=== PATIENT | female | born 1940 | race Caucasian/White ===

== ENCOUNTER → 2017-11-28 | Outpatient (CLI) | payer MEDICARE, OTHER ==
--- NOTE | 2017-11-28 10:45 | US ---
EXAMINATION TYPE: US abdomen complete DATE OF EXAM: 11/28/2017 COMPARISON: NONE CLINICAL HISTORY: R10.9 Abd pain. Intermittent epigastric pain for 2 months EXAM MEASUREMENTS: Liver Length: 14.2 cm Gallbladder Wall: 0.3 cm CBD: 0.4 cm Spleen: 11.2 cm Right Kidney: 10.2 x 4.2 x 4.5 cm Left Kidney: 10.4 x 4.9 x 3.9 cm Pancreas: Tail obscured by overlying bowel gas Liver: slightly heterogeneous Gallbladder: no evidence of stones Evidence for sonographic Batista's sign: no CBD: wnl Spleen: granulomas Right Kidney: no evidence of hydronephrosis Left Kidney: no evidence of hydronephrosis Upper IVC: wnl Abd Aorta: portions obscured by overlying bowel content The intrahepatic portion of the IVC and proximal abdominal aorta are within normal limits. There is no evidence of cholelithiasis. Common bile duct is unremarkable. The visualized portions of the pa ncreas are homogenous. The spleen is unremarkable. Kidneys are symmetric and free of hydronephrosis . No renal lesions are seen. IMPRESSION: 1. Borderline fatty hepatic infiltration.
== END ==
LOC: RADUSWWP 09:56
PROVIDERS: ATTEND Family Medicine
DX: K76.0 Fatty (change of) liver, not elsewhere classified (principal)
CPT/HCPCS: 76700

== ENCOUNTER 2017-12-29 08:21 | Day surgery (SDC) | payer MEDICARE, OTHER ==
[2017-12-24 11:54] VITALS: BMI 30.9
--- NOTE | 2017-12-28 18:12 | HP ---
HISTORY AND PHYSICAL DATE OF ADMISSION: 12/29/2017 CHIEF COMPLAINT: Fluid in the right ear. HISTORY OF PRESENT ILLNESS: This patient is a 77-year-old female who was recently seen in my office complaining of a plugged sensation in her right ear. It is to be noted that the patient had Davis type T tubes placed in both ears approximately 2 years ago and has done well. At the time that she was seen in my office, clinical examination of the right ear revealed that the Davis type T-tube had extruded from the tympanic membrane. Testing with the tuning fork revealed a conductive hearing loss and there was evidence of fluid in the right middle ear space. Examination of the left ear revealed that the Davis type T tube was intact and patent. It was recommended that the patient undergo a right myringotomy with insertion of a Davis type T-tube under IV sedation with MAC. PAST MEDICAL HISTORY: Past medical history reveals that she has: ALLERGIES: TO NEOSPORIN. MEDICATIONS: Current medications include: Ezetimibe, metoprolol, losartan, VESIcare, Famotidine. REVIEW OF SYSTEMS: Review of systems revealed that the cardiovascular system is positive for hypertension. The remainder of the review of systems is essentially unremarkable. PHYSICAL EXAMINATION: This patient is a very pleasant 77-year-old female who is alert and cooperative. HEENT examination: Patient is normocephalic. Examination of left ear reveals that the left tympanic membrane has a Davis T-type T tube is present and the tube is patent and the left middle ear space is free of any fluid or infection. Examination of the right ear reveals that the right tube has extruded and the right tympanic membrane is dull with fluid in the right middle ear space. Pupils equal, round, react to light and accommodation. Extraocular movements within normal limits. Full intranasal examination reveals moderate to severe septal deviation with compensatory hypertrophy of the inferior turbinates and a moderate amount of mucus on the mucous membranes and draining down the posterior pharyngeal wall. Examination of oropharynx, cranial nerves 2 through 12 and remainder of the head and neck exam are within normal limits. Chest/cardiovascular: Both lung cardenas are clear to percussion and auscultation. The patient is in regular sinus rhythm S1, S2 are present without evidence of any murmurs S3s or S4s. Peripheral pulses are bilaterally symmetrical. ABDOMEN: There is no evidence of any masses, megaly, or tenderness. ABDOMEN: Soft. Skin is unremarkable. Musculoskeletal and neurological is within normal limits. Pelvic and rectal examination exam is deferred at this time because the patient has this done on a regular basis at the family physician's office. The remainder of the past medical history reveals that the patient's previous surgeries include a bilateral myringotomy with insertion of Davis type T tubes, right myringotomy with insertion of ventilation tube, several benign breast biopsies, tubal ligation, and carpal tunnel surgery. She is 3, para 3, 0 miscarriage. IMPRESSION: Chronic right serous otitis media. PLAN: The patient is scheduled undergo a insertion of a Davis T-type T-tube and a myringotomy of the right tympanic membrane under IV sedation with MAC, depending upon the anesthesia department's preference. Attention RNs in the pre-surgical area: I have not ordered any pre-surgical medications or pre-surgical prophylactic antibiotics for this patient. If the pharmacy department sends any pre-surgical prophylactic antibiotics to the pre-surgical area for this patient, that order should be cancelled and the medication returned to the pharmacy department. Please make sure that the patient's account is credited appropriately. I have discussed the risks, benefits and alternative therapies for the above-mentioned procedure and for both sedation/analgesia as well as necessary blood product administration, if indicated, as they pertain to this patient. The patient has indicated his or her understanding and acceptance of the risks and procedures discussed. MMKAREENL / DANICAN: [id number] /
[~2017-12-29 08:21] MED LIST: DEXAMETHASONE SOD PHOSPHATE 10 MG/ML 1 ML VIAL IV ONE; LACTATED RINGERS 1,000 ML IV SCH; LIDOCAINE 1% 20 ML VIAL (10MG/ML) FOR IV START INTRADERMA PRN; MIDAZOLAM 2 MG/2 ML VIAL IV PRN; ONDANSETRON 4 MG/2 ML VIAL IVP ONE; fentaNYL (PF) 50 MCG/ML 2 ML AMP IV PRN
[2017-12-29 09:44] VITALS: TEMP 98.2
[2017-12-29] MEDS ORDERED: MIDAZOLAM 2 MG/2 ML VIAL ONE (10:15)
[2017-12-29] MEDS ORDERED: fentaNYL (PF) 50 MCG/ML 2 ML AMP ONE (10:15)
[2017-12-29] MEDS ORDERED: PROPOFOL 10 MG/ML 20 ML VIAL IV ONE (10:15)
[2017-12-29] MEDS ORDERED: OFLOXACIN 0.3% OPHTH DROPS 5 ML BOTTLE RIGHT EAR ONE (10:32)
[2017-12-29 11:20] VITALS: BP 128/58; PULSE 63; RESP 16
--- NOTE | 2017-12-29 22:31 | OP ---
OPERATIVE REPORT DATE OF SURGERY: 12/29/2017. PREOPERATIVE: Chronic right serous otitis media. POSTOPERATIVE DIAGNOSIS: Chronic right serous otitis media. ANESTHESIA: IV sedation with MAC. OPERATIVE PROCEDURE: Right myringotomy with insertion of a Davis type T-tube. SURGEON: Dr. Madsen. COMPLICATIONS: None. OPERATIVE PROCEDURE: The patient is placed on operating table in supine position. After uneventful induction and IV sedation, satisfactory sedation was obtained. Next, using the Zeiss operating microscope and a #3 aural speculum, the right external auditory canal was cleansed of all wax and debris. Initial inspection of the external auditory canal revealed a very small hematoma on the inferior wall and it was also noted that the central portion of the right tympanic membrane had apparently been thinned out most likely from the recurrent infections. There was noted to be fluid in the right middle ear space. Therefore, using the myringotomy knife, an incision was made in the anterior inferior quadrant of the right tympanic membrane. Clear serous, fluid was suctioned free from the right middle ear space. Next, a Davis T-type T-tube was inserted through the previously made myringotomy incision without difficulty. Inspection revealed that the was well seated. At this point, the procedure was terminated. There were no intraoperative complications. The patient tolerated procedure well and was returned to recovery room in satisfactory condition. MMODL / IJN: [id number] /
== END 2017-12-29 11:35 | disposition home or self-care (01) ==
LOC: OR 08:21
PROVIDERS: ATTEND Otolaryngology
DX: H65.21 Chronic serous otitis media, right ear (principal); I10 Essential (primary) hypertension; J45.909 Unspecified asthma, uncomplicated; K21.9 Gastro-esophageal reflux disease without esophagitis; Z79.899 Other long term (current) drug therapy; Z88.8 Allergy status to other drugs, medicaments and biological substances
CPT/HCPCS: 69436; J2250; J1100; J2405; J3010; J2704

== ENCOUNTER → 2018-06-30 | Day surgery (SDC) | payer MEDICARE, OTHER ==
[2018-06-25 09:37] VITALS: BMI 31.4
[~2018-06-30] MED LIST changes: +BUPIVACAINE (PF) 0.5% 30 ML VIAL SQ ONE; -DEXAMETHASONE SOD PHOSPHATE 10 MG/ML 1 ML VIAL IV ONE; +HYDROmorphone 0.5 MG/0.5 ML SYRINGE IVP PRN; +LIDOCAINE 1% 20 ML VIAL (10MG/ML) FOR IV START INTRADERMA ONE; -LIDOCAINE 1% 20 ML VIAL (10MG/ML) FOR IV START INTRADERMA PRN; +LIDOCAINE 2% INJ 20 MG/ML SQ ONE; +MIDAZOLAM (PF) 2 MG/2 ML VIAL IV PRN; -MIDAZOLAM 2 MG/2 ML VIAL IV PRN; +MIDAZOLAM 2 MG/2 ML VIAL ONE; +PROPOFOL 10 MG/ML 20 ML VIAL IV ONE; +Pre Op ABX Message 1 EACH MISC MISCELLANE ONE; -fentaNYL (PF) 50 MCG/ML 2 ML AMP IV PRN
[2018-06-30 07:25] VITALS: TEMP 97.7
[2018-06-30 08:44] VITALS: RESP 16
[2018-06-30 09:05] VITALS: BP 125/79; PULSE 69
--- NOTE | 2018-06-30 13:06 | OP ---
OPERATIVE REPORT SURGERY DATE: 06/30/2018. SURGEON: Vasiliy Church DO PREOPERATIVE DIAGNOSIS: Left carpal tunnel syndrome. POSTOPERATIVE DIAGNOSIS: Left carpal tunnel syndrome. PROCEDURE: Left carpal tunnel release. DESCRIPTION OF PROCEDURE: The patient was taken to the operative suite where a sedation was administered by the Department of Anesthesia. I then performed a local injection along the line of the incision with a combination of Marcaine and Xylocaine both without epinephrine. The hand was then prepped and draped in the usual manner. The arm was elevated, exsanguinated and the cuff was inflated to 250 mm of mercury. A longitudinal incision was made along the ring finger ray distal to the wrist crease. Dissection was taken through the skin and subcutaneous tissue, initially sharp through the skin and then blunt through the subcutaneous tissue to ensure protection of any potential terminal transverse branches of the palmar cutaneous nerve. The palmar fascia was then incised under direct vision longitudinally exposing the transverse carpal ligament. The transverse carpal ligament also was incised under direct vision. The dissection was then continued proximally beneath the skin under direct vision to release the distal forearm fascia. The median nerve was then reflected free of tenosynovium to ensure no adhesions. The tourniquet was then released. The wound was then irrigated and the skin was closed with a running 5-0 nylon suture. A soft bulky dressing was applied including a volar plaster splint holding the wrist in a neutral slightly extended position. The patient was then taken to the recovery room in satisfactory condition. MMODTerrell / IJN: [id number] /
== END ==
LOC: OR 06:52
PROVIDERS: ATTEND Orthopaedic Surgery Hand Surgery
DX: G56.02 Carpal tunnel syndrome, left upper limb (principal); I49.9 Cardiac arrhythmia, unspecified; I10 Essential (primary) hypertension; J45.909 Unspecified asthma, uncomplicated; Z97.3 Presence of spectacles and contact lenses; Z87.891 Personal history of nicotine dependence; Z79.51 Long term (current) use of inhaled steroids; Z79.1 Long term (current) use of non-steroidal anti-inflammatories (NSAID); Z79.899 Other long term (current) drug therapy; Z88.8 Allergy status to other drugs, medicaments and biological substances; Z83.3 Family history of diabetes mellitus; Z82.49 Family history of ischemic heart disease and other diseases of the circulatory system
CPT/HCPCS: 64721; J2001; J2250; J2405; J2704

== ENCOUNTER 2019-12-31 08:30 | Day surgery (SDC) | payer MEDICARE ==
[2019-12-29 13:42] VITALS: BMI 31.8
--- NOTE | 2019-12-31 00:18 | HP ---
HISTORY AND PHYSICAL CHIEF COMPLAINT: Fluid in the right ear. HISTORY OF PRESENT ILLNESS: The patient is a 79-year-old female who was recently seen in my office complaining of having a plugged sensation in right ear. Approximately 2-1/2 years ago, we placed a tube in the right ear because of fluid and patient feels that the tube may have come out of her ear. At the time that she was seen in my office, clinical examination of the ear revealed that the ventilation tube had in fact extruded and there was fluid in the right middle ear space, that is to say she had chronic right serous otitis media so- called glue ear. It was recommended that she undergo a right myringotomy with insertion of a Davis ventilation tube under IV sedation with MAC. PAST MEDICAL HISTORY: Past medical history reveals she has an allergy to NEOSPORIN. CURRENT MEDICATIONS: Current medications include metoprolol, losartan, ezetimibe, Aller-[place], Tylenol and testosterone shots biweekly. REVIEW OF SYSTEMS: Cardiovascular is positive for hypertension. Respiratory is negative. Gastrointestinal is negative. Metabolic endocrine is negative. The remainder of the review of systems is unremarkable. PREVIOUS SURGERIES: Previous surgeries include a right myringotomy with insertion of a ventilation tube x3, several benign breast biopsies, tubal ligation, carpal tunnel surgery. She is 3 para, 3 , 0 miscarriage. PHYSICAL EXAMINATION: The patient is a 79-year-old female who is alert and cooperative. HEENT EXAMINATION: Patient is normocephalic. Left tympanic membrane is unremarkable. Right tympanic membrane is dull with fluid in the right middle ear space. Pupils are equal, round, react to light and accommodation. Extraocular movements are within normal limits. Intranasal examination reveals moderate septal deviation with compensatory hypertrophy of the inferior turbinates and a moderate amount of mucus on the mucous membranes and draining down the posterior pharynx. Examination of the oropharynx, cranial nerves 2 through 12 and remainder of the head and neck exam, all within normal limits. CHEST/CARDIOVASCULAR: Both lung cardenas are clear to percussion and auscultation. Patient is in regular sinus rhythm. S1, S2 are present without any murmurs, S3s or S4s. Peripheral pulses are bilaterally symmetrical. ABDOMEN: There is no evidence any masses, megaly or tenderness. Abdomen is soft. Skin is unremarkable. Musculoskeletal and neurological are within normal limits. PELVIC RECTAL EXAM: The pelvic rectal exam is deferred at this time because the patient has this done on a regular basis at her family physician's office. The remainder of physical exam is unremarkable. IMPRESSION: Chronic right serous otitis media. PLAN: The patient is scheduled undergo a right myringotomy, with insertion of a Davis T-type ventilation tube under IV sedation with MAC in the a.m. ATTENTION RNS IN THE PRE-SURGICAL AREA: I have not ordered any pre-surgical prophylactic antibiotics for this patient. If the pharmacy department sends any pre- surgical prophylactic antibiotics to the pre-surgical area for this patient, that order should be cancelled and the medication should be returned to the pharmacy department. Please make sure that the patient's account is credited appropriately. I have discussed the risks, benefits and alternative therapies for the above-mentioned procedure and for both sedation/analgesia as well as necessary blood product administration, if indicated, as they pertain to this patient. The patient has indicated his or her understanding and acceptance of the risks and procedures discussed. MMKAREENL / IJN: [id number] /
[~2019-12-31 08:30] MED LIST changes: -BUPIVACAINE (PF) 0.5% 30 ML VIAL SQ ONE; +DEXAMETHASONE SOD PHOSPHATE 10 MG/ML 1 ML VIAL IV ONE; -HYDROmorphone 0.5 MG/0.5 ML SYRINGE IVP PRN; +LIDOCAINE 1% (10MG/ML) FOR IV START INTRADERMA PRN; -LIDOCAINE 1% 20 ML VIAL (10MG/ML) FOR IV START INTRADERMA ONE; -LIDOCAINE 2% INJ 20 MG/ML SQ ONE; -MIDAZOLAM (PF) 2 MG/2 ML VIAL IV PRN; -MIDAZOLAM 2 MG/2 ML VIAL ONE; -ONDANSETRON 4 MG/2 ML VIAL IVP ONE; -PROPOFOL 10 MG/ML 20 ML VIAL IV ONE
[2019-12-31] MEDS ORDERED: LACTATED RINGERS 1,000 ML IV ONE (09:15)
[2019-12-31] MEDS ORDERED: ONDANSETRON 4 MG/2 ML VIAL ONE (09:20)
[2019-12-31 09:26] VITALS: RESP 16; TEMP 98.3
[2019-12-31] MEDS ORDERED: PROPOFOL 10 MG/ML 20 ML VIAL IV ONE (10:10)
[2019-12-31] MEDS ORDERED: LIDOCAINE 1% INJ 10MG/ML (20 ML MDV) ONE (10:10)
[2019-12-31] MEDS ORDERED: MIDAZOLAM 2 MG/2 ML VIAL ONE (10:10)
[2019-12-31] MEDS ORDERED: fentaNYL (PF) 50 MCG/ML 2 ML AMP ONE (10:10)
[2019-12-31] MEDS ORDERED: OFLOXACIN 0.3% OTIC DROPS 5 ML BTL RIGHT EAR ONE (10:11)
[2019-12-31] MEDS ORDERED: OFLOXACIN 0.3% OPHTH DROPS 5 ML BOTTLE RIGHT EAR ONE (10:37)
[2019-12-31 11:14] VITALS: BP 106/66; PULSE 82
--- NOTE | 2019-12-31 19:39 | OP ---
OPERATIVE REPORT DATE OF SURGERY: 12/31/2019 PREOPERATIVE DIAGNOSIS: Chronic right serous otitis media. POSTOPERATIVE DIAGNOSIS: Chronic right serous otitis media. ANESTHESIA: IV sedation with M.A.C. OPERATIVE PROCEDURE: Right myringotomy with insertion of a Davis T-type ventilation tube. OPERATING SURGEON: Dr. Madsne. COMPLICATIONS: None. OPERATIVE PROCEDURE DESCRIPTION: The patient was placed on the operating table in supine position and after uneventful IV sedation, satisfactory sedation was obtained. Next the patient's right ear was prepped and draped in the usual and customary fashion. Following this, using the Zeiss operating microscope and a #3 aural speculum, the right external auditory canal was cleansed of all wax and debris. Next, a previously extruded ventilation tube, which was located in the external auditory canal, was removed using a pair of alligator forceps. Following this, the myringotomy knife was used to make an incision in the anterior inferior quadrant of the right tympanic membrane. The right middle ear space was suctioned free of all fluid. A Davis T-type ventilation tube was inserted through previous myringotomy incision without difficulty. At this point the procedure was terminated. There were no intraoperative complications. The patient tolerated the procedure well and was returned to the recovery room in satisfactory condition. MMODL / IJN: [id number] /
== END 2019-12-31 11:42 | disposition home or self-care (01) ==
LOC: OR 08:30
PROVIDERS: ATTEND Otolaryngology
DX: H65.21 Chronic serous otitis media, right ear (principal); I10 Essential (primary) hypertension; J45.909 Unspecified asthma, uncomplicated; Z98.890 Other specified postprocedural states; Z88.0 Allergy status to penicillin; Z79.899 Other long term (current) drug therapy; Z79.890 Hormone replacement therapy; Z98.51 Tubal ligation status; Z86.69 Personal history of other diseases of the nervous system and sense organs
CPT/HCPCS: 69436; J2250; J1100; J2405; J2001; J3010; J2704

== ENCOUNTER 2020-01-03 03:03 | Emergency (ER) | payer MEDICARE ==
[2020-01-03] MEDS ORDERED: ACETAMINOPHEN TAB 325 MG TAB PO STA (03:14)
[2020-01-03] MEDS ORDERED: SODIUM CHLORIDE 0.9% 500 ML 500 ML IV ONE (03:14)
[2020-01-03] MEDS ORDERED: SODIUM CHLORIDE 0.9% 1,000 ML IV SCH (03:15)
--- NOTE | 2020-01-03 03:15 | ED ---
General Adult HPI - General Chief complaint: Nausea/Vomiting/Diarrhea Stated complaint: body aches Time Seen by Provider: 01/03/20 03:12 Source: patient Mode of arrival: ambulatory Limitations: no limitations - History of Present Illness Initial comments: Nedra is a very pleasant 79-year-old female who presents the ER today for evaluation of persistent nausea, body aches, alteration in sense of taste and generalized malaise. Patient reports that on Friday she had tympanostomy tube placed. She felt well in the immediate postoperative period however later that night she developed a change in her sense of taste, feels like things don't taste right. She's completely lost her appetite. She reports persistent nausea since Friday night. No vomiting. She did have an episode of diarrhea Friday morning. Patient reports that she's had body aches throughout the weekend. The symptoms didn't seem to be getting any better was concerned she may be becoming dehydrated and decided to bring her to the hospital for further evaluation. Patient denies any chest pain palpitations shortness of breath. She's had subjective fevers but has not been checking her temperature at home. - Related Data Home Medications Medication Instructions Recorded Confirmed Ezetimibe [Zetia] 10 mg PO DAILY 07/12/15 12/31/19 Multivitamins, Thera [Multivitamin] 1 tab PO DAILY 07/12/15 12/31/19 Calcium Carbonate [Calcium] 600 mg PO DAILY 12/24/17 12/31/19 Cetirizine HCl [Zyrtec] 10 mg PO DAILY 12/24/17 12/31/19 Cholecalciferol (Vitamin D3) 2,000 unit PO DAILY 12/24/17 12/31/19 [Vitamin D3] Losartan [Cozaar] 50 mg PO DAILY 12/24/17 12/31/19 Metoprolol Tartrate [Lopressor] 25 mg PO DAILY 12/24/17 12/31/19 Solifenacin Succinate [Vesicare] 5 mg PO DAILY 12/24/17 12/31/19 Acetaminophen [Tylenol Arthritis] 650 mg PO BID 12/29/19 12/31/19 Cannabidiol (Cbd) [Epidiolex] 1 dose TOPICAL DAILY 12/29/19 12/31/19 Flaxseed Oil 1,400 mg PO DAILY 12/29/19 12/31/19 Testosterone Cypionate 1 dose IM Q14D 12/29/19 12/31/19 [Depo-Testosterone] Vitamin C/Biotin [Hair, Skin and 1 tab PO DAILY 12/29/19 12/31/19 Nails] Previous Rx's Medication Instructions Recorded Ondansetron [Zofran ODT] 4 mg PO Q8HR #12 tab 01/03/20 Allergies Allergy/AdvReac Type Severity Reaction Status Date / Time bacitracin Allergy Rash/Hives Verified 01/03/20 03:11 [From Neosporin ([id number])] bacitracin zinc Allergy Rash/Hives Verified 01/03/20 03:11 [From Neosporin ([id number])] neomycin sulfate Allergy Rash/Hives Verified 01/03/20 03:11 [From Neosporin ([id number])] polymyxin B Allergy Rash/Hives Verified 01/03/20 03:11 [From Neosporin ([id number])] Review of Systems ROS Statement: Those systems with pertinent positive or pertinent negative responses have been documented in the HPI. ROS Other: All systems not noted in ROS Statement are negative. Past Medical History Past Medical History: Asthma, Hyperlipidemia, Hypertension, Osteoarthritis (OA) Additional Past Medical History / Comment(s): Fluid in R ear. urinary leakage @ times. History of Any Multi-Drug Resistant Organisms: None Reported Past Surgical History: Breast Surgery, Orthopedic Surgery, Tubal Ligation Additional Past Surgical History / Comment(s): Breast biopsy, aletha. carpal tunnel surg. R Myringotomy. Arthroscopy bilat. knees. Past Anesthesia/Blood Transfusion Reactions: No Reported Reaction Past Psychological History: No Psychological Hx Reported Smoking Status: Former smoker Past Alcohol Use History: None Reported Past Drug Use History: None Reported - Past Family History Father Family Medical History: Cancer, COPD Additional Family Medical History / Comment(s): Lung General Exam - General Exam Comments Initial Comments: Physical Exam GENERAL: Patient is well-developed and well-nourished. Appears uncomfortable but nontoxic HENT: Normocephalic, Atraumatic. EYES: PERRL, EOMI PULMONARY: Unlabored respirations. CARDIOVASCULAR: RRR Warm and well perfused extremities ABDOMEN: Non-distended SKIN: No rashes or bruising : Deferred NEUROLOGIC: Alert and oriented Normal speech Normal gait MUSCULOSKELETAL: Moving all extremities with no apparent injury PSYCHIATRIC: No SI/HI Limitations: no limitations Course Vital Signs 01/03/20 01/03/20 03:07 05:26 Temperature 100.8 F H 99.2 F Pulse Rate 109 H 95 Respiratory 22 16 Rate Blood Pressure 172/94 O2 Sat by Pulse 96 99 Oximetry EKG Findings - EKG Comments: EKG Findings:: EKG was obtained due to tachycardia, EKG was obtained at 3:40 AM, rate is 102, rhythm is sinus, normal axis, normal intervals, FL 132, QRS 72, QTc is 419 there are no acute ST elevations or depressions there is no evidence of acute ischemia or infarction. Medical Decision Making - Medical Decision Making The patient was seen and evaluated history is obtained from the patient and at bedside History and physical exam are concerning for COVID 19 given that the patient has fever, tachycardia, loss of sense of taste, generalized body aches Upon arrival patient was febrile and tachycardic, septic workup as well as labs for valuation possible COVID 19 were ordered Given the patient's advanced age a small IV fluid bolus was ordered Labs and chest x-ray are concerning for COVID 19 however the patient has no hypoxia or respiratory involvement Patient was swabbed for COVID 19, patient has been or advised that she'll be notified of any positive results Urinalysis with skin contamination patient is not having any lower urinary tract symptoms therefore antibiotics will not be prescribed especially considering patient is arty suffering from nausea and diarrhea I feel that antibiotics could worsen the symptoms Given the patient's advanced age I did offer to place the patient in observation for COVID 19 however she would prefer discharge home at this time. Very close return parameters were discussed with the patient and her at bedside. Patient will be discharged home with Zofran for nausea. All questions pertaining care were answered to the best my ability. The need for quarantine was discussed. Ways in which the can attempt to isolate from his were discussed. Patient was discharged home in stable condition. - Lab Data Result diagrams: 01/03/20 03:49 01/03/20 03:49 Lab Results 01/03/20 01/03/20 01/03/20 Range/Units 03:49 03:49 03:49 WBC 3.3 L (3.8-10.6) k/uL RBC 4.77 (3.80-5.40) m/uL Hgb 14.2 (11.4-16.0) gm/dL Hct 43.2 (34.0-46.0) % MCV 90.6 (80.0-100.0) fL MCH 29.8 (25.0-35.0) pg MCHC 32.9 (31.0-37.0) g/dL RDW 12.2 (11.5-15.5) % Plt Count 208 (150-450) k/uL Neutrophils % 69 % Lymphocytes % 15 % Monocytes % 14 % Eosinophils % 1 % Basophils % 1 % Neutrophils # 2.3 (1.3-7.7) k/uL Lymphocytes # 0.5 L (1.0-4.8) k/uL Monocytes # 0.5 (0-1.0) k/uL Eosinophils # 0.0 (0-0.7) k/uL Basophils # 0.0 (0-0.2) k/uL PT 10.0 (9.0-12.0) sec INR 1.0 (<1.2) APTT 24.1 (22.0-30.0) sec D-Dimer 0.68 H (<0.60) mg/L FEU Sodium 135 L (137-145) mmol/L Potassium 3.9 (3.5-5.1) mmol/L Chloride 102 (98-107) mmol/L Carbon Dioxide 27 (22-30) mmol/L Anion Gap 6 mmol/L BUN 13 (7-17) mg/dL Creatinine 0.74 (0.52-1.04) mg/dL Est GFR (CKD-EPI)AfAm 90 (>60 ml/min/1.73 sqM) Est GFR (CKD-EPI)NonAf 78 (>60 ml/min/1.73 sqM) Glucose 123 H (74-99) mg/dL Plasma Lactic Acid Joseph (0.7-2.0) mmol/L Calcium 9.0 (8.4-10.2) mg/dL Magnesium 2.0 (1.6-2.3) mg/dL Total Bilirubin 1.0 (0.2-1.3) mg/dL AST 45 H (14-36) U/L ALT 55 H (4-34) U/L Alkaline Phosphatase 65 (38-126) U/L Lactate Dehydrogenase 462 (313-618) U/L C-Reactive Protein 36.2 H (<10.0) mg/L Total Protein 7.2 (6.3-8.2) g/dL Albumin 4.1 (3.5-5.0) g/dL Urine Color Urine Appearance (Clear) Urine pH (5.0-8.0) Ur Specific [place] (1.001-1.035) Urine Protein (Negative) Urine Glucose (UA) (Negative) Urine Ketones (Negative) Urine Blood (Negative) Urine Nitrite (Negative) Urine Bilirubin (Negative) Urine Urobilinogen (<2.0) mg/dL Ur Leukocyte Esterase (Negative) Urine RBC (0-5) /hpf Urine WBC (0-5) /hpf Ur Squamous Epith Cells (0-4) /hpf Urine Mucus (None) /hpf Influenza Type A RNA (Not Detectd) Influenza Type B (PCR) (Not Detectd) 01/03/20 01/03/20 01/03/20 Range/Units 03:49 03:49 03:49 WBC (3.8-10.6) k/uL RBC (3.80-5.40) m/uL Hgb (11.4-16.0) gm/dL Hct (34.0-46.0) % MCV (80.0-100.0) fL MCH (25.0-35.0) pg MCHC (31.0-37.0) g/dL RDW (11.5-15.5) % Plt Count (150-450) k/uL Neutrophils % % Lymphocytes % % Monocytes % % Eosinophils % % Basophils % % Neutrophils # (1.3-7.7) k/uL Lymphocytes # (1.0-4.8) k/uL Monocytes # (0-1.0) k/uL Eosinophils # (0-0.7) k/uL Basophils # (0-0.2) k/uL PT (9.0-12.0) sec INR (<1.2) APTT (22.0-30.0) sec D-Dimer (<0.60) mg/L FEU Sodium (137-145) mmol/L Potassium (3.5-5.1) mmol/L Chloride (98-107) mmol/L Carbon Dioxide (22-30) mmol/L Anion Gap mmol/L BUN (7-17) mg/dL Creatinine (0.52-1.04) mg/dL Est GFR (CKD-EPI)AfAm (>60 ml/min/1.73 sqM) Est GFR (CKD-EPI)NonAf (>60 ml/min/1.73 sqM) Glucose (74-99) mg/dL Plasma Lactic Acid Joseph 0.9 (0.7-2.0) mmol/L Calcium (8.4-10.2) mg/dL Magnesium (1.6-2.3) mg/dL Total Bilirubin (0.2-1.3) mg/dL AST (14-36) U/L ALT (4-34) U/L Alkaline Phosphatase (38-126) U/L Lactate Dehydrogenase (313-618) U/L C-Reactive Protein (<10.0) mg/L Total Protein (6.3-8.2) g/dL Albumin (3.5-5.0) g/dL Urine Color Yellow Urine Appearance Clear (Clear) Urine pH 5.5 (5.0-8.0) Ur Specific [place] 1.021 (1.001-1.035) Urine Protein Trace H (Negative) Urine Glucose (UA) Negative (Negative) Urine Ketones 1+ H (Negative) Urine Blood Negative (Negative) Urine Nitrite Negative (Negative) Urine Bilirubin Negative (Negative) Urine Urobilinogen <2.0 (<2.0) mg/dL Ur Leukocyte Esterase Large H (Negative) Urine RBC 1 (0-5) /hpf Urine WBC 7 H (0-5) /hpf Ur Squamous Epith Cells 4 (0-4) /hpf Urine Mucus Moderate H (None) /hpf Influenza Type A RNA Not Detected (Not Detectd) Influenza Type B (PCR) Not Detected (Not Detectd) Disposition Clinical Impression: Exposure to COVID-19 virus Disposition: HOME SELF-CARE Additional Instructions: You were evaluated in the emergency department with symptoms concerning for infection with coronavirus COVID-19. COVID-19 is a new strain of a common viral illness. While a diagnosis of coronavirus may feel scary, most cases of coronavirus are mild and resolve on their own without hospitalization. At this time, we feel that you are safe to go home. Steps to take at home to care for yourself: Get lots of rest and stay hydrated by drinking plenty of fluids. You can take acetaminophen (eg, Tylenol) for fevers or body aches. If you have questions, call your primary care doctor, contact your local health department, or visit the CDCs website at cdc.gov/coronavirus. Speak with your primary care doctor within 2 weeks to discuss a plan to follow up. How to avoid spreading the virus to others: Stay at home, except if seeking medical care. Cover your coughs (with a tissue or in your elbow), and avoid touching your face unnecessarily. Wash your hands often (using soap and water for 20 seconds) to decrease your risk of infecting others. Try to avoid close contact with others in your home, including pets. If possible, use a different bathroom, and sleep in a separate room. If you must be near others, be sure to wear a face mask and wash your hands before interacting with them. Disinfect and avoid sharing commonly used items like phones, towels, and dishes with others. If a test was sent and is positive, your local health department will contact you. Follow their directions about when to go back to work or school. If you were not tested, you may stop quarantine 10 days after the start of your symptoms as long as your symptoms have been completely gone (without using medications) for at least 72 hours (3 days). If you or those around you are concerned about COVID-19, call your primary care doctor for advice about steps to take. Your health system may have specific locations to go for testing if you are not extremely sick. This lowers the risk that you could catch a virus or pass it on in the emergency department waiting room. If you are extremely sick and going to the emergency department, call ahead, so they can prepare for your visit. Speak to your doctor or come back to the emergency department for new or worsening symptoms, such as severe headache, confusion, chest pain, difficulty breathing, or vomiting to the point that you cannot drink fluids. Review medication inserts for side effects, and call the emergency department if you have any questions about the medications or care you received. Prescriptions: Ondansetron [Zofran ODT] 4 mg PO Q8HR #12 tab Is patient prescribed a controlled substance at d/c from ED?: No Referrals: Albino Couch MD [Primary Care Provider] - 1-2 days
--- NOTE | 2020-01-03 03:59 | XR ---
EXAM: XR Chest, 1 View CLINICAL HISTORY: ITS.REASON XR Reason: Suspected COVID-19 pneumonia TECHNIQUE: Frontal view of the chest. COMPARISON: No relevant prior studies available. FINDINGS: Lungs: Patchy bilateral atelectasis or infiltrate. Pleural space: No significant pleural effusion or pneumothorax. Heart: Enlarged cardiomediastinal silhouette. Mediastinum: See above. Bones/joints: No acute fracture. IMPRESSION: 1. Patchy bilateral atelectasis or infiltrate. 2. Enlarged cardiomediastinal silhouette.
[2020-01-03 04:19] LABS: Albumin 4.1 g/dL (3.5-5.0); C Reactive Protein 36.2 mg/L (<10.0); Potassium 3.9 mmol/L (3.5-5.1); Total Protein 7.2 g/dL (6.3-8.2)
[2020-01-03 04:24] LABS: Basophils % (A) 1 %; Eosinophils % (A) 1 %; HCT 43.2 % (34.0-46.0); HGB 14.2 gm/dL (11.4-16.0); Lymphocytes # (A) 0.5 k/uL (1.0-4.8); Lymphocytes % (A) 15 %; MCH 29.8 pg (25.0-35.0); MCHC 32.9 g/dL (31.0-37.0); MCV 90.6 fL (80.0-100.0); Mean Platelet Volume 7.5; Monocytes # (A) 0.5 k/uL (0-1.0); Monocytes % (A) 14 %; Neutrophils # (A) 2.3 k/uL (1.3-7.7); Neutrophils % (A) 69 %; Platelet Count 208 k/uL (150-450); RBC 4.77 m/uL (3.80-5.40); RDW 12.2 % (11.5-15.5); WBC 3.3 k/uL (3.8-10.6)
[2020-01-03 04:28] LABS: Partial Thromboplastin Time 24.1 sec (22.0-30.0)
[2020-01-03 04:32] LABS: D-Dimer 0.68 mg/L FEU (<0.60)
[2020-01-03 05:25] LABS: Appearance,Urine Clear (Clear); Bilirubin,Urine Negative (Negative); Blood,Urine Negative (Negative); Color,Urine Yellow; Glucose,Urine (UA) Negative (Negative); Ketones,Urine 1+ (Negative); Leukocyte Esterase,Urine Large (Negative); Mucus,Urine Moderate /hpf; Nitrite,Urine Negative (Negative); PH, Urine 5.5 (5.0-8.0); Protein,Urine Trace (Negative); RBC,Urine 1 /hpf (0-5); Specific Gravity,Urine 1.021 (1.001-1.035); Squamous Epithelial Cell,Urine 4 /hpf (0-4); Urobilinogen,Urine <2.0 mg/dL (<2.0); WBC,Urine 7 /hpf (0-5)
[2020-01-03 05:27] VITALS: PULSE 95
[2020-01-03] MEDS ORDERED: ONDANSETRON 4 MG ODT STARTER PACK 2 TAB BTL PO STA (05:30)
[2020-01-03 05:50] VITALS: BP 146/78; RESP 15; TEMP 99.3
[2020-01-03 15:32] LABS: Ferritin 346.5 ng/mL (10.0-291.0)
== END 2020-01-03 05:49 | disposition home or self-care (01) ==
LOC: EC 03:03
DX: U07.1 COVID-19 (principal); I10 Essential (primary) hypertension; E78.5 Hyperlipidemia, unspecified; Z79.899 Other long term (current) drug therapy; Z88.1 Allergy status to other antibiotic agents; Z87.891 Personal history of nicotine dependence
CPT/HCPCS: 36415; 93005; 85379; 80053; 82728; 83605; 83615; 83735; 85025; 85610; 85730; 86140; 81001; 87040; 87502; 84145; 71045; 99284; U0003; S0119

== ENCOUNTER → 2020-01-05 | Outpatient (CLI) | payer MEDICARE ==
--- NOTE | 2020-01-05 17:48 | CT ---
EXAMINATION TYPE: CT angio chest DATE OF EXAM: 01/05/2020 COMPARISON: None HISTORY: SOB CT DLP: 526 mGycm Automated exposure control for dose reduction was used. CONTRAST: Performed with IV Contrast, patient injected with 68cc mL of Isovue 370. There are 3-D post processed images. There are patchy areas of infiltrate in the upper and lower lobes bilaterally. These are mostly perip heral and interstitial. There is no suspicious pulmonary mass. There is no mediastinal adenopathy. Th ere are no hilar masses. Thoracic aorta is intact. There is no aneurysm or dissection. Heart size is normal. There is no pericardial effusion. There is no pleural effusion. There is normal contrast opacification of the pulmonary arteries. There are no filling defects. The b morales thorax is intact. There is spurring in the thoracic spine. IMPRESSION: No evidence of pulmonary embolism. Bilateral patchy upper and lower lobe pulmonary infiltrates consistent with fibrosis and inflammatory disease.
== END | disposition home or self-care (01) ==
LOC: RADCTMAIN 17:18
PROVIDERS: ATTEND Nurse Practitioner Adult Health
DX: R91.8 Other nonspecific abnormal finding of lung field (principal); R97.1 Elevated cancer antigen 125 [CA 125]
CPT/HCPCS: 71275; Q9967

== ENCOUNTER → 2020-05-12 | Outpatient (CLI) | payer MEDICARE ==
--- NOTE | 2020-05-16 14:55 | MM ---
Reason for exam: screening (asymptomatic). Last mammogram was performed 1 year and 4 months ago. History: Patient is postmenopausal. Family history of breast cancer in maternal aunt at age 80. Benign excisional biopsy of both breasts, 1980. Took hormonal contraceptives for 10 years. Taking other hormone for 6 months. Physical Findings: A clinical breast exam by your physician is recommended on an annual basis and results should be correlated with mammographic findings. MG 3D Screening Mammo W/Cad Bilateral CC and MLO view(s) were taken. Prior study comparison: January 22, 2019, mammogram, performed at [facility]. January 20, 2018, mammogram, performed at [facility]. The breast tissue is heterogeneously dense. This may lower the sensitivity of mammography. No significant changes when compared with prior studies. ASSESSMENT: Benign, BI-RAD 2 RECOMMENDATION: Routine screening mammogram of both breasts in 1 year.
== END ==
LOC: RADMAMWWP 12:46
PROVIDERS: ATTEND Family Medicine
DX: Z12.31 Encounter for screening mammogram for malignant neoplasm of breast (principal); Z78.0 Asymptomatic menopausal state; Z80.3 Family history of malignant neoplasm of breast
CPT/HCPCS: 77063; 77067

== ENCOUNTER → 2021-05-16 | Outpatient (CLI) | payer MEDICARE ==
--- NOTE | 2021-05-17 10:48 | MM ---
Reason for exam: screening (asymptomatic). Last mammogram was performed 1 year ago. History: Patient is postmenopausal. Family history of breast cancer in maternal aunt at age 80. Benign excisional biopsy of both breasts, 1980. Took hormonal contraceptives for 10 years. Taking other hormone for 6 months. Physical Findings: A clinical breast exam by your physician is recommended on an annual basis and results should be correlated with mammographic findings. MG 3D Screening Mammo W/Cad Bilateral CC and MLO view(s) were taken. Prior study comparison: May 12, 2020, bilateral MG 3d screening mammo w/cad. January 22, 2019, mammogram, performed at [facility]. The breast tissue is heterogeneously dense. This may lower the sensitivity of mammography. Finding #1: There is a 10 mm equal density (isodense) mass in the upper quadrant, central position of the right breast. Finding #2: There are typically benign calcifications in both breasts. ASSESSMENT: Incomplete: need additional imaging evaluation, BI-RAD 0 RECOMMENDATION: Special view mammogram of the right breast. If lesion persists on supplemental views, image directed ultrasound is recommended. [facility] will attempt to contact patient to return for supplemental views and ultrasound if indicated.
== END | disposition home or self-care (01) ==
LOC: RADMAMWWP 15:35
PROVIDERS: ATTEND Family Medicine
DX: Z12.31 Encounter for screening mammogram for malignant neoplasm of breast (principal); Z78.0 Asymptomatic menopausal state; Z80.3 Family history of malignant neoplasm of breast
CPT/HCPCS: 77063; 77067

== ENCOUNTER → 2021-05-21 | Outpatient (CLI) | payer MEDICARE ==
--- NOTE | 2021-05-21 11:28 | MM ---
Reason for exam: additional evaluation requested from abnormal screening. Last mammogram was performed less than 1 month ago. History: Patient is postmenopausal. Family history of breast cancer in maternal aunt at age 80. Benign excisional biopsy of both breasts, 1980. Took hormonal contraceptives for 10 years. Taking other hormone for 6 months. Physical Findings: A clinical breast exam by your physician is recommended on an annual basis and results should be correlated with mammographic findings. MG 3D Work Up W/Cad RT Spot compression CC, spot compression MLO, and LM view(s) were taken of the right breast. Prior study comparison: May 16, 2021, bilateral MG 3d screening mammo w/cad. May 12, 2020, bilateral MG 3d screening mammo w/cad. The breast tissue is heterogeneously dense. This may lower the sensitivity of mammography. Spiculated density upper outer right breast 11cm from nipple measures 11mm. Nodular density 6.4cm from nipple at 12 o'clock measures 10mm. These results were verbally communicated with the patient and result sheet given to the patient on 05/21/21. ASSESSMENT: Incomplete: need additional imaging evaluation, BI-RAD 0 RECOMMENDATION: Ultrasound of the right breast.
--- NOTE | 2021-05-21 11:31 | USB ---
Reason for exam: additional evaluation requested from abnormal screening. History: Patient is postmenopausal. Family history of breast cancer in maternal aunt at age 80. Benign excisional biopsy of both breasts, 1980. Took hormonal contraceptives for 10 years. Taking other hormone for 6 months. Physical Findings: A clinical breast exam by your physician is recommended on an annual basis and results should be correlated with mammographic findings. US Breast Workup Limited RT Right limited breast ultrasound including focal area of concern, retroareolar and axilla demonstrates a 0.5 x 0.6 x 0.2cm oval, cystic cluster in dense tissue at 10 o'clock, a 0.4 x 0.4 x 0.2cm oval, cystic lesion at 12 o'clock and a 2.5 x 2.1 x 1.0cm lymph node at the axilla. Scanned 9-12 o'clock. These results were verbally communicated with the patient and result sheet given to the patient on 05/21/21. ASSESSMENT: Suspicious, BI-RAD 4 RECOMMENDATION: Stereotactic core biopsy of the right breast. (far upper outer quadrant spiculated lesion) Called Ddr. Couch's office with mammographic findings. Biopsy scheduled for 06/18/21 at 7:00. PRELIMINARY REPORT CALLED AND FAXED TO DR. COUCH ON 05/21/21.
== END | disposition home or self-care (01) ==
LOC: RADMAMWWP 08:18
PROVIDERS: ATTEND Family Medicine
DX: R92.8 Other abnormal and inconclusive findings on diagnostic imaging of breast (principal); Z78.0 Asymptomatic menopausal state; Z80.3 Family history of malignant neoplasm of breast
CPT/HCPCS: 77065; 76642; G0279; 77061

== ENCOUNTER → 2021-06-18 | Day surgery (SDC) | payer MEDICARE ==
[2021-06-18 07:15] VITALS: BP 136/73; PULSE 78; RESP 16; TEMP 97.9
--- NOTE | 2021-06-18 14:10 | MM ---
EXAMINATION TYPE: MG discontinued stereo core RT DATE OF EXAM: 06/18/2021 COMPARISON: NONE CLINICAL HISTORY: Right breast spiculated density Multiple unsuccessful attempts were made at localizing the area of spiculation within the right breas t all of which proved unsuccessful. I do recommend needle localization with open biopsy for further e valuation. IMPRESSION: Suspicious BI-RADS 4 Recommendation: Needle localization with open biopsy of the right breast.
== END ==
LOC: RADMAMWWP 06:42
PROVIDERS: ATTEND Family Medicine
DX: R92.8 Other abnormal and inconclusive findings on diagnostic imaging of breast (principal); Z53.8 Procedure and treatment not carried out for other reasons

== ENCOUNTER 2021-08-01 21:04 | Emergency (ER) | payer MEDICARE ==
[2021-08-01 22:41] VITALS: TEMP 99.4
[2021-08-01 23:14] LABS: Appearance,Urine Clear (Clear); Bilirubin,Urine Negative (Negative); Blood,Urine Negative (Negative); Color,Urine Light Yellow; Glucose,Urine (UA) Negative (Negative); Ketones,Urine 1+ (Negative); Leukocyte Esterase,Urine Moderate (Negative); Mucus,Urine Rare /hpf; Nitrite,Urine Negative (Negative); Protein,Urine Negative (Negative); RBC,Urine 1 /hpf (0-5); Specific Gravity,Urine 1.006 (1.001-1.035); Squamous Epithelial Cell,Urine 1 /hpf (0-4); Urobilinogen,Urine <2.0 mg/dL (<2.0); WBC,Urine 4 /hpf (0-5)
[2021-08-01 23:15] LABS: Basophils # (A) 0.1 k/uL (0-0.2); Basophils % (A) 0 %; Eosinophils # (A) 0.2 k/uL (0-0.7); Eosinophils % (A) 1 %; HCT 39.9 % (34.0-46.0); HGB 13.1 gm/dL (11.4-16.0); Lymphocytes # (A) 1.4 k/uL (1.0-4.8); Lymphocytes % (A) 9 %; MCH 30.2 pg (25.0-35.0); MCHC 32.8 g/dL (31.0-37.0); MCV 92.1 fL (80.0-100.0); Mean Platelet Volume 7.7; Monocytes # (A) 1.2 k/uL (0-1.0); Monocytes % (A) 7 %; Neutrophils # (A) 13.3 k/uL (1.3-7.7); Neutrophils % (A) 81 %; Platelet Count 298 k/uL (150-450); RBC 4.33 m/uL (3.80-5.40); RDW 12.1 % (11.5-15.5); WBC 16.4 k/uL (3.8-10.6)
[2021-08-01 23:33] LABS: Albumin 4.5 g/dL (3.5-5.0); Calcium 9.3 mg/dL (8.4-10.2); Potassium 3.9 mmol/L (3.5-5.1); Total Bilirubin 2.3 mg/dL (0.2-1.3); Total Protein 7.5 g/dL (6.3-8.2)
--- NOTE | 2021-08-01 23:58 | XR ---
EXAMINATION TYPE: XR KUB DATE OF EXAM: 08/01/2021 COMPARISON: NONE HISTORY: Constipation TECHNIQUE: 2 views upright FINDINGS: There is no sign of intestinal obstruction or pneumoperitoneum. Fecal pattern is normal. No evidence of a mass. There is mild thoracolumbar dextroscoliosis. There are no calcifications over th e kidneys. IMPRESSION: Nonacute abdomen.
--- NOTE | 2021-08-02 01:19 | ED ---
Abdominal Pain HPI - General Chief Complaint: Abdominal Pain Stated Complaint: Sent by PCP Constipation Time Seen by Provider: 08/02/21 00:49 Source: patient Mode of arrival: ambulatory Limitations: no limitations - History of Present Illness Initial Comments: This patient is an 80-year-old woman who presents to be evaluated for diffuse abdominal pain. She states it had started approximately 3 days ago. It was mainly in the lower abdomen but now she states there is pain throughout the entire abdomen. She had gone to her physician's clinic today, she was seen by the mid-level practitioner there who felt she may have an element of constipation and she therefore went home and performed 2 enemas out without passing very much stool and with no relief of her symptoms. The patient denies vomiting. She has not noted change in urination. No pain to the chest or dyspnea. No radiation of the pain to the legs. MD Complaint: abdominal pain Onset/Timin -: days(s) Location: diffuse Migration to: no migration Severity: moderate Quality: cramping, aching, fullness Consistency: constant Improves With: nothing Worsens With: nothing Associated Symptoms: constipation - Related Data Home Medications Medication Instructions Recorded Confirmed Ezetimibe [Zetia] 10 mg PO DAILY 07/12/15 06/18/21 Multivitamins, Thera [Multivitamin] 1 tab PO DAILY 07/12/15 06/18/21 Calcium Carbonate [Calcium] 600 mg PO DAILY 12/24/17 06/18/21 Cetirizine HCl [Zyrtec] 10 mg PO DAILY 12/24/17 06/18/21 Cholecalciferol (Vitamin D3) 2,000 unit PO DAILY 12/24/17 06/18/21 [Vitamin D3] Losartan [Cozaar] 50 mg PO DAILY 12/24/17 06/18/21 Metoprolol Tartrate [Lopressor] 25 mg PO DAILY 12/24/17 06/18/21 Acetaminophen [Tylenol Arthritis] 650 mg PO BID 12/29/19 06/18/21 Previous Rx's Medication Instructions Recorded Cephalexin [Keflex] 500 mg PO Q6HR #28 cap 08/02/21 HYDROcodone/APAP 5-325MG [[place] 1 tab PO Q4HR PRN 3 Days #18 tab 08/02/21 5-325] metroNIDAZOLE [Flagyl] 500 mg PO TID #21 tab 08/02/21 Allergies Allergy/AdvReac Type Severity Reaction Status Date / Time bacitracin Allergy Rash/Hives Verified 08/01/21 22:41 [From Neosporin ([id number])] bacitracin zinc Allergy Rash/Hives Verified 08/01/21 22:41 [From Neosporin ([id number])] neomycin sulfate Allergy Rash/Hives Verified 08/01/21 22:41 [From Neosporin ([id number])] polymyxin B Allergy Rash/Hives Verified 08/01/21 22:41 [From Neosporin ([id number])] Review of Systems ROS Statement: Those systems with pertinent positive or pertinent negative responses have been documented in the HPI. ROS Other: All systems not noted in ROS Statement are negative. Constitutional: Denies: fever, chills Respiratory: Denies: cough, dyspnea Cardiovascular: Denies: chest pain, palpitations, edema Gastrointestinal: Reports: abdominal pain, nausea, constipation. Denies: vom iting, diarrhea, hematemesis, melena, hematochezia Genitourinary: Denies: dysuria, frequency, hematuria Musculoskeletal: Denies: back pain Skin: Denies: rash Neurological: Denies: headache, weakness, numbness Past Medical History Past Medical History: Asthma, Hyperlipidemia, Hypertension, Osteoarthritis (OA) Additional Past Medical History / Comment(s): Fluid in R ear. urinary leakage @ times. History of Any Multi-Drug Resistant Organisms: None Reported Past Surgical History: Breast Surgery, Orthopedic Surgery, Tubal Ligation Additional Past Surgical History / Comment(s): Breast biopsy, aletha. carpal tunnel surg. R Myringotomy. Arthroscopy bilat. knees. Past Anesthesia/Blood Transfusion Reactions: No Reported Reaction Past Psychological History: No Psychological Hx Reported Smoking Status: Former smoker Past Alcohol Use History: None Reported Past Drug Use History: None Reported - Past Family History Father Family Medical History: Cancer, COPD Additional Family Medical History / Comment(s): Lung General Exam Limitations: no limitations General appearance: alert, in no apparent distress Head exam: Present: atraumatic, normocephalic Eye exam: Present: normal appearance. Absent: scleral icterus, conjunctival injection Neck exam: Present: normal inspection Respiratory exam: Present: normal lung sounds bilaterally. Absent: respiratory distress, wheezes, rales, rhonchi, stridor Cardiovascular Exam: Present: regular rate, normal rhythm, normal heart sounds. Absent: systolic murmur, diastolic murmur, rubs, gallop GI/Abdominal exam: Present: soft, tenderness (Mild diffuse tenderness, no rebound or guarding.). Absent: distended, guarding, rebound, rigid, mass, pulsatile mass Extremities exam: Present: normal inspection, normal capillary refill. Absent: pedal edema, calf tenderness Back exam: Present: normal inspection. Absent: CVA tenderness (R), CVA tenderness (L) Neurological exam: Present: alert Skin exam: Present: warm, dry, intact, normal color. Absent: rash Course Vital Signs 08/01/21 08/02/21 22:37 01:56 Temperature 99.4 F Pulse Rate 121 H 110 H Respiratory 20 18 Rate Blood Pressure 149/83 137/84 O2 Sat by Pulse 96 95 Oximetry Medical Decision Making - Lab Data Result diagrams: 08/01/21 22:53 08/01/21 22:53 Lab Results 08/01/21 08/01/21 08/01/21 Range/Units 22:53 22:53 22:53 WBC 16.4 H (3.8-10.6) k/uL RBC 4.33 (3.80-5.40) m/uL Hgb 13.1 (11.4-16.0) gm/dL Hct 39.9 (34.0-46.0) % MCV 92.1 (80.0-100.0) fL MCH 30.2 (25.0-35.0) pg MCHC 32.8 (31.0-37.0) g/dL RDW 12.1 (11.5-15.5) % Plt Count 298 (150-450) k/uL MPV 7.7 Neutrophils % 81 % Lymphocytes % 9 % Monocytes % 7 % Eosinophils % 1 % Basophils % 0 % Neutrophils # 13.3 H (1.3-7.7) k/uL Lymphocytes # 1.4 (1.0-4.8) k/uL Monocytes # 1.2 H (0-1.0) k/uL Eosinophils # 0.2 (0-0.7) k/uL Basophils # 0.1 (0-0.2) k/uL Sodium 135 L (137-145) mmol/L Potassium 3.9 (3.5-5.1) mmol/L Chloride 97 L (98-107) mmol/L Carbon Dioxide 28 (22-30) mmol/L Anion Gap 10 mmol/L BUN 12 (7-17) mg/dL Creatinine 0.81 (0.52-1.04) mg/dL Est GFR (CKD-EPI)AfAm 80 (>60 ml/min/1.73 sqM) Est GFR (CKD-EPI)NonAf 69 (>60 ml/min/1.73 sqM) Glucose 127 H (74-99) mg/dL Calcium 9.3 (8.4-10.2) mg/dL Total Bilirubin 2.3 H (0.2-1.3) mg/dL AST 26 (14-36) U/L ALT 21 (4-34) U/L Alkaline Phosphatase 75 (38-126) U/L Total Protein 7.5 (6.3-8.2) g/dL Albumin 4.5 (3.5-5.0) g/dL Amylase 54 (30-110) U/L Lipase 33 (23-300) U/L Urine Color Light Yellow Urine Appearance Clear (Clear) Urine pH 5.0 (5.0-8.0) Ur Specific [place] 1.006 (1.001-1.035) Urine Protein Negative (Negative) Urine Glucose (UA) Negative (Negative) Urine Ketones 1+ H (Negative) Urine Blood Negative (Negative) Urine Nitrite Negative (Negative) Urine Bilirubin Negative (Negative) Urine Urobilinogen <2.0 (<2.0) mg/dL Ur Leukocyte Esterase Moderate H (Negative) Urine RBC 1 (0-5) /hpf Urine WBC 4 (0-5) /hpf Ur Squamous Epith Cells 1 (0-4) /hpf Urine Mucus Rare H (None) /hpf Disposition Clinical Impression: Diverticulitis Disposition: HOME SELF-CARE Condition: Good Instructions (If sedation given, give patient instructions): Diverticulitis (ED) Prescriptions: metroNIDAZOLE [Flagyl] 500 mg PO TID #21 tab Cephalexin [Keflex] 500 mg PO Q6HR #28 cap HYDROcodone/APAP 5-325MG [[place] 5-325] 1 tab PO Q4HR PRN 3 Days #18 tab PRN Reason: Pain Is patient prescribed a controlled substance at d/c from ED?: Yes When asked, does pt state using other controlled substances?: No If prescribed controlled substance>3 days was MAPS reviewed?: Prescribed <3 Days If opioid is for acute pain is fill amount 7 days or less?: Yes If Rx opioid, was Start Talking consent form obtained?: Yes Referrals: Albino Couch MD [Primary Care Provider] - 1-2 days
[2021-08-02 01:57] VITALS: RESP 18
--- NOTE | 2021-08-02 01:57 | CT ---
EXAMINATION TYPE: CT abdomen pelvis wo con DATE OF EXAM: 08/02/2021 COMPARISON: 07/26/2015 HISTORY: constipation CT DLP: 741.7 mGycm Automated exposure control for dose reduction was used. Images obtained from the diaphragm to the floor the pelvis without contrast. There is some patchy atelectasis at the lung bases. Heart size is normal. No pericardial effusion. Th ere are calcified multiple splenic granulomata. There is no pancreatic mass. Gallbladder appears inta ct. There is probably a single calcified small gallstone. Liver is intact. The bile ducts are not dil ated. There is small hiatal hernia. There is no adrenal mass. Kidneys have normal size. No hydronephrosis. Ureters are not dilated. There is no retroperitoneal adenopathy. Bladder distends smoothly. There is no inguinal hernia. No free fl uid in the pelvis. Appendix is not seen. No sign of thickened appendix. There is extensive sigmoid diverticulosis. There is fat stranding and wall thickening of the mid sigm oid colon. There is adjacent wall thickening and edema of the ileum. This is likely secondary to the diverticulitis. No drainable fluid collection. There is no evidence of free air. There are multiple d iverticula in the remainder of the colon. The lumbar vertebrae have normal alignment. Posterior elements are intact. No compression fracture. T here is mild multilevel lumbar disc space narrowing. The bony pelvis is intact. There are some hypert rophic arthritic changes in the hip joints. IMPRESSION: There is extensive colonic diverticulosis with sigmoid diverticulitis and extensive fat stranding. Th ere is adjacent edema in the ileum likely secondary to the diverticulitis. No drainable fluid collect ion. Mild scarring and subsegmental atelectasis at the lung bases is increased compared to old exam. Diverticulitis is new compared to the old exam.
[2021-08-02] MEDS ORDERED: metroNIDAZOLE 500 MG TAB PO STA (03:01)
[2021-08-02] MEDS ORDERED: LEVOFLOXACIN 750 MG TAB PO STA (03:01)
[2021-08-02] MEDS ORDERED: MORPHINE SULFATE 4 MG/ML SYRINGE IV STA (03:19)
[2021-08-02 03:30] VITALS: BP 156/85; PULSE 102
== END 2021-08-02 03:30 | disposition home or self-care (01) ==
LOC: EC 21:04
DX: K57.32 Diverticulitis of large intestine without perforation or abscess without bleeding (principal); I10 Essential (primary) hypertension; J45.909 Unspecified asthma, uncomplicated; E78.5 Hyperlipidemia, unspecified; M19.90 Unspecified osteoarthritis, unspecified site; Z87.891 Personal history of nicotine dependence; Z79.899 Other long term (current) drug therapy
CPT/HCPCS: 36415; 74018; 74176; 80053; 81001; 82150; 83690; 85025; 99284